=== PATIENT | female | born 1995 | race African-American/Black ===

== ENCOUNTER 2018-03-20 20:47 | Emergency (ER) | payer MEDICAID ==
[~2018-03-20] VITALS: Ht 160 cm; Wt 72.0 kg
[2018-03-21 02:05] VITALS: BP 113/67
== END 2018-03-21 02:20 | disposition home or self-care (01) ==
LOC: ER 20:47
DX: F12.10 Cannabis abuse, uncomplicated (principal); J45.909 Unspecified asthma, uncomplicated; R00.2 Palpitations; R25.3 Fasciculation
CPT/HCPCS: 93005; 99284